=== PATIENT | female | born 1985 | race Asian ===

== ENCOUNTER 2017-06-29 16:45 | Outpatient (CLI) | payer OTHER ==
[~2017-06-29] VITALS: Ht 162.6 cm; Wt 92.2 kg
[2017-06-29 16:49] VITALS: BP 118/63
[2017-06-29 17:07] LABS: MICROSCOPIC NOT IND
[2017-06-29 17:08] LABS: BASOPHILS # (AUTO) 0.04 x10^3/uL (0-0.1); BASOPHILS % (AUTO) 0 % (0-1); EOSINOPHILS % (AUTO) 0 % (1-7); LYMPHOCYTES # (AUTO) 2.33 x10^3/uL (1-3.4); LYMPHOCYTES % (AUTO) 18 % (22-44); MD NO; MEAN CORPUSCULAR HEMOGLOBIN 30.7 pg (27.0-34.8); MEAN CORPUSCULAR HGB CONC 33.2 g/dL (32.4-35.8); MEAN CORPUSCULAR VOLUME 92.5 fL (80-100); MEAN PLATELET VOLUME 7.1 fL (7.4-10.4); MONOCYTES # (AUTO) 0.91 x10^3/uL (0.2-0.8); MONOCYTES % (AUTO) 7 % (2-9); NEUTROPHILS # (AUTO) 9.67 x10^3/uL (1.8-6.8); NEUTROPHILS % (AUTO) 75 % (42-75); PLATELET COUNT 395 x10^3/uL (130-400); RED BLOOD COUNT 3.89 x10^6/uL (3.82-5.3); RED CELL DISTRIBUTION WIDTH 13.4 % (9.6-15.2)
[2017-06-29 17:20] LABS: ALANINE AMINOTRANSFERASE 17 U/L (12-78); ALBUMIN 2.5 g/dL (3.4-5.0); ANION GAP 10 mmol/L (5-15); CALCIUM 8.2 mg/dL (8.5-10.1); CHLORIDE 109 mmol/L (98-107); CREATININE 0.53 mg/dL (0.55-1.02)
[2017-06-29 17:21] LABS: PROTEIN/CREATININE RATIO,URINE < 287 (0-200); TOTAL PROTEIN,URINE RANDOM < 5 mg/dL (0-12)
[2017-06-29 17:22] LABS: ALKALINE PHOSPHATASE 113 U/L (45-117); BILIRUBIN,TOTAL 0.2 mg/dL (0.2-1.0); TOTAL PROTEIN 6.6 g/dL (6.4-8.2)
== END 2017-06-29 18:19 | disposition home or self-care (01) ==
LOC: LDOP 16:45
PROVIDERS: ATTEND Obstetrics & Gynecology
DX: O26.893 Other specified pregnancy related conditions, third trimester (principal); R03.0 Elevated blood-pressure reading, without diagnosis of hypertension; Z3A.33 33 weeks gestation of pregnancy
CPT/HCPCS: 36415; 59025; 80053; 81003; 81050; 82570; 83615; 84156; 84550; 85025; 99201; G0463

== ENCOUNTER 2017-08-11 06:07 | Inpatient (IN) | payer OTHER ==
[~2017-08-11] VITALS: Ht 162.6 cm; Wt 92.7 kg
[2017-08-11] MEDS ORDERED: NEWBORN KIT ONE (06:46)
[2017-08-11] MEDS ORDERED: D5%-LACTATED RINGERS 1,000 ML IV SCH (07:11)
[2017-08-11] MEDS ORDERED: LACTATED RINGERS 1,000 ML IV SCH (07:11)
[2017-08-11] MEDS ORDERED: OXYTOCIN 30U/ 0.9% NaCL 500ML 500 ML IV ONE (07:11)
[2017-08-11] MEDS ORDERED: OXYTOCIN 30U/ 0.9% NaCL 500ML 500 ML IV PRN (07:11)
[2017-08-11] MEDS ORDERED: MISOPROSTOL 25 MCG TABLET VG PRN (07:30)
[2017-08-11] MEDS ORDERED: FENTANYL PF 100 MCG/2ML IV PRN (07:30)
[2017-08-11] MEDS ORDERED: ONDANSETRON 2MG/ML, 2ML IVPush PRN (07:30)
[2017-08-11] MEDS ORDERED: MISOPROSTOL 25 MCG TABLET ONE (07:58)
[2017-08-11 08:03] LABS: BASOPHILS # (AUTO) 0.12 x10^3/uL (0-0.1); BASOPHILS % (AUTO) 1 % (0-1); EOSINOPHILS % (AUTO) 1 % (1-7); LYMPHOCYTES # (AUTO) 2.11 x10^3/uL (1-3.4); LYMPHOCYTES % (AUTO) 19 % (22-44); MD NO; MEAN CORPUSCULAR HEMOGLOBIN 30.8 pg (27.0-34.8); MEAN CORPUSCULAR HGB CONC 33.7 g/dL (32.4-35.8); MEAN CORPUSCULAR VOLUME 91.4 fL (80-100); MEAN PLATELET VOLUME 7.4 fL (7.4-10.4); MONOCYTES # (AUTO) 0.67 x10^3/uL (0.2-0.8); MONOCYTES % (AUTO) 6 % (2-9); NEUTROPHILS # (AUTO) 8.05 x10^3/uL (1.8-6.8); NEUTROPHILS % (AUTO) 73 % (42-75); PLATELET COUNT 359 x10^3/uL (130-400); RED BLOOD COUNT 3.78 x10^6/uL (3.82-5.3); RED CELL DISTRIBUTION WIDTH 15.1 % (9.6-15.2)
[2017-08-11] MEDS ORDERED: ACETAMINOPHEN 325 MG TABLET ONE (09:55)
[2017-08-11] MEDS: ACETAMINOPHEN 325 MG TABLET PO PRN (09:56)
[2017-08-11] MEDS ORDERED: FENTANYL PF 100 MCG/2ML ONE ×2 (18:14→22:13)
[2017-08-11] MEDS: FENTANYL PF 100 MCG/2ML IVPush PRN ×2 (18:17→22:18)
[2017-08-12] MEDS ORDERED: FENTANYL PF 100 MCG/2ML ONE (03:14)
[2017-08-12] MEDS: FENTANYL PF 100 MCG/2ML IVPush PRN (03:17)
[2017-08-12] MEDS ORDERED: OXYTOCIN 30U/ 0.9% NaCL 500ML 500 ML ONE ×2 (05:37→22:03)
[2017-08-12] MEDS ORDERED: METOCLOPRAMIDE 5 MG/ML, 2ML ONE (07:03)
[2017-08-12] MEDS ORDERED: TERBUTALINE 1 MG/ML, 1ML ONE (07:03)
[2017-08-12] MEDS ORDERED: SODIUM CITRATE/CITRIC ACID 30 ML UDC ONE (07:03)
[2017-08-12] MEDS ORDERED: FENTANYL/BUPIV./NS/PF 250 ML EPIDCONT ONE (07:20)
[2017-08-12] MEDS ORDERED: LIDOCAINE-MPF 2% ,5ML ONE (07:20)
[2017-08-12] MEDS ORDERED: BUPIVACAINE 0.25% ONE (07:25)
[2017-08-12] MEDS ORDERED: LIDOCAINE/PF 1.5%-EPI 1:200K, 30ML ONE (07:25)
[2017-08-12] MEDS ORDERED: ACETAMINOPHEN 325 MG TABLET ONE ×2 (09:03→17:49)
[2017-08-12] MEDS: ACETAMINOPHEN 325 MG TABLET PO PRN ×2 (09:05→17:50)
[2017-08-12] MEDS ORDERED: LACTATED RINGERS 1,000 ML IV SCH (09:36)
[2017-08-12] MEDS ORDERED: FENTANYL/BUPIV./NS/PF 250 ML EPIDCONT SCH (09:36)
[2017-08-12] MEDS ORDERED: NALOXONE 0.4 MG/ML, 1ML IVPush PRN (10:00)
[2017-08-12] MEDS ORDERED: LACTATED RINGERS 1,000 ML IVBOLUS PRN (10:00)
[2017-08-12] MEDS ORDERED: EPHEDRINE 50 MG/ML, 1ML IVPush PRN (10:00)
[2017-08-12] MEDS ORDERED: TERBUTALINE 1 MG/ML, 1ML IVPush PRN (14:30)
[2017-08-12] MEDS ORDERED: ACETAMINOPHEN 325 MG TABLET PO PRN ×2 (19:00)
[2017-08-12] MEDS ORDERED: ONDANSETRON 2MG/ML, 2ML IV PRN (19:00)
[2017-08-12] MEDS ORDERED: MEASLES,MUMPS&RUBELLA VACC/PF 0.5 ML SQ-VACC PRN (19:00)
[2017-08-12] MEDS ORDERED: RHOGAM FROM BLOOD BANK 1 NOTE EA IM/IV ONE (19:00)
[2017-08-12] MEDS ORDERED: DOCUSATE 100 MG CAPSULE PO PRN (19:00)
[2017-08-12] MEDS ORDERED: OXYcodone/APAP 5/325MG TABLET PO PRN (19:00)
[2017-08-12] MEDS ORDERED: CALCIUM CARBONATE 500 MG TAB.CHEW PO PRN (19:00)
[2017-08-12] MEDS ORDERED: DIPH,PERTUSS(ACELL),TET VAC/PF NC IM-VACC PRN (19:00)
[2017-08-12] MEDS ORDERED: MISOPROSTOL 200 MCG TABLET PR PRN (19:00)
[2017-08-12] MEDS ORDERED: MAGNESIUM HYDROXIDE 8%, 30ML UDC PO PRN (19:00)
[2017-08-12] MEDS ORDERED: IBUPROFEN 600 MG TABLET ONE (21:19)
[2017-08-12] MEDS: IBUPROFEN 600 MG TABLET PO PRN (21:23)
[2017-08-12] MEDS: OXYTOCIN 30U/ 0.9% NaCL 500ML 500 ML IV SCH (22:07)
[2017-08-12 23:05] VITALS: BP 112/71
[2017-08-13] MEDS: OXYcodone/APAP 5/325MG TABLET PO PRN ×3 (02:09→14:55)
[2017-08-13 04:20] VITALS: BP 119/74
[2017-08-13] MEDS: OXYTOCIN 30U/ 0.9% NaCL 500ML 500 ML IV SCH ×2 (04:39→14:39)
[2017-08-13] MEDS: IBUPROFEN 600 MG TABLET PO PRN ×2 (04:48→13:06)
[2017-08-13 05:42] LABS: MEAN CORPUSCULAR HEMOGLOBIN 30.8 pg (27.0-34.8); MEAN CORPUSCULAR HGB CONC 33.5 g/dL (32.4-35.8); MEAN PLATELET VOLUME 7.7 fL (7.4-10.4); PLATELET COUNT 320 x10^3/uL (130-400); RED BLOOD COUNT 3.81 x10^6/uL (3.82-5.3); RED CELL DISTRIBUTION WIDTH 15.7 % (9.6-15.2)
[2017-08-13 06:04] LABS: BASOPHILS # (AUTO) 0.06 x10^3/uL (0-0.1); BASOPHILS % (AUTO) 0 % (0-1); EOSINOPHILS # (AUTO) 0.06 x10^3/uL (0-0.4); EOSINOPHILS % (AUTO) 0 % (1-7); LYMPHOCYTES # (AUTO) 2.12 x10^3/uL (1-3.4); LYMPHOCYTES % (AUTO) 12 % (22-44); MD SCAN; MONOCYTES % (AUTO) 7 % (2-9); NEUTROPHILS # (AUTO) 14.82 x10^3/uL (1.8-6.8); NEUTROPHILS % (AUTO) 81 % (42-75)
[2017-08-13 07:05] VITALS: BP 117/79
[2017-08-13] MEDS ORDERED: PRENATAL VIT/IRON/FA 1 EACH TABLET PO SCH (09:00)
[2017-08-13 11:30] VITALS: BP 122/77
[2017-08-13] MEDS ORDERED: IBUP-1222 PO (12:26)
[2017-08-13] MEDS ORDERED: DOCU-131 PO (12:28)
[2017-08-13] MEDS ORDERED: OXYC-302 PO (12:30)
[2017-08-13 16:20] VITALS: BP 124/76
== END 2017-08-13 18:50 | disposition home or self-care (01) | DRG 775 ==
LOC: LDIP 06:07 → 2NW 08-12 23:05
PROVIDERS: ADMIT Obstetrics & Gynecology; ATTEND Obstetrics & Gynecology
PROC: 10E0XZZ Delivery of Products of Conception, External Approach (ICD-10-PCS; principal; 2017-08-12)
PROC: 0KQM0ZZ Repair Perineum Muscle, Open Approach (ICD-10-PCS; 2017-08-12)
PROC: 10907ZC Drainage of Amniotic Fluid, Therapeutic from Products of Conception, Via Natural or Artificial Opening (ICD-10-PCS; 2017-08-12)
PROC: 10H07YZ Insertion of Other Device into Products of Conception, Via Natural or Artificial Opening (ICD-10-PCS; 2017-08-12)
DX: O76 Abnormality in fetal heart rate and rhythm complicating labor and delivery (principal); O71.89 Other specified obstetric trauma; Z37.0 Single live birth; Z3A.39 39 weeks gestation of pregnancy
CPT/HCPCS: 36415; 82803; 85025; 86850; 86900; J3010; J3490; J2590; J7120

== ENCOUNTER 2019-11-08 17:00 | Inpatient (IN) | payer BC, OTHER ==
[~2019-11-08] VITALS: Ht 162.6 cm; Wt 100.0 kg
[~2019-11-08 17:00] MED LIST: DOCU-131 PO; IBUP-1222 PO; OXYC-302 PO
[2019-11-08] MEDS ORDERED: D5%-LACTATED RINGERS 1,000 ML IV SCH (17:05)
[2019-11-08] MEDS ORDERED: OXYTOCIN 30U/ 0.9% NaCL 500ML 500 ML IV PRN (17:05)
[2019-11-08] MEDS ORDERED: LIDOCAINE 1%, 20ML ONE (17:05)
[2019-11-08] MEDS ORDERED: LACTATED RINGERS 1,000 ML IV SCH ×2 (17:05→17:36)
[2019-11-08] MEDS ORDERED: OXYTOCIN 30U/ 0.9% NaCL 500ML 500 ML ONE (17:05)
[2019-11-08] MEDS ORDERED: OXYTOCIN 30U/ 0.9% NaCL 500ML 500 ML IV ONE (17:05)
[2019-11-08] MEDS ORDERED: NEWBORN KIT ONE (17:05)
[2019-11-08] MEDS ORDERED: MISOPROSTOL 200 MCG TABLET ONE (17:06)
[2019-11-08 17:25] LABS: BASOPHILS # (AUTO) 0.05 x10^3/uL (0-0.1); BASOPHILS % (AUTO) 1 % (0-1); EOSINOPHILS # (AUTO) 0.19 x10^3/uL (0-0.4); EOSINOPHILS % (AUTO) 2 % (1-7); LYMPHOCYTES # (AUTO) 1.97 x10^3/uL (1-3.4); LYMPHOCYTES % (AUTO) 17 % (22-44); MD NO; MEAN CORPUSCULAR HEMOGLOBIN 32.4 pg (27.0-34.8); MEAN CORPUSCULAR HGB CONC 34.1 g/dL (32.4-35.8); MEAN CORPUSCULAR VOLUME 95.3 fL (80-100); MEAN PLATELET VOLUME 7.7 fL (7.4-10.4); MONOCYTES # (AUTO) 0.59 x10^3/uL (0.2-0.8); MONOCYTES % (AUTO) 5 % (2-9); NEUTROPHILS # (AUTO) 8.82 x10^3/uL (1.8-6.8); NEUTROPHILS % (AUTO) 76 % (42-75); PLATELET COUNT 353 x10^3/uL (130-400); RED BLOOD COUNT 4.16 x10^6/uL (3.82-5.3); RED CELL DISTRIBUTION WIDTH 14.8 % (9.6-15.2)
[2019-11-08] MEDS ORDERED: TERBUTALINE 1 MG/ML, 1ML SQ PRN (17:30)
[2019-11-08] MEDS ORDERED: METOCLOPRAMIDE 5 MG/ML, 2ML IVPush PRN (17:30)
[2019-11-08] MEDS ORDERED: ONDANSETRON 2MG/ML, 2ML IVPush PRN (17:30)
[2019-11-08] MEDS ORDERED: TERBUTALINE 1 MG/ML, 1ML IVPush PRN (17:30)
[2019-11-08] MEDS ORDERED: SODIUM CITRATE/CITRIC ACID 30 ML UDC PO PRN (17:30)
[2019-11-08] MEDS ORDERED: FENTANYL PF 100 MCG/2ML IV PRN (17:30)
[2019-11-08] MEDS ORDERED: FENTANYL PF 100 MCG/2ML IVPush PRN (17:30)
[2019-11-08] MEDS ORDERED: CALCIUM CARBONATE 500 MG TAB.CHEW PO PRN (17:30)
[2019-11-08] MEDS ORDERED: FENTANYL/BUPIV./NS/PF 250 ML EPIDCONT SCH (17:36)
[2019-11-08] MEDS ORDERED: LACTATED RINGERS 1,000 ML IVBOLUS PRN (18:00)
[2019-11-08] MEDS ORDERED: EPHEDRINE 50 MG/ML, 1ML IVPush PRN (18:00)
[2019-11-08 19:46] VITALS: BP 136/89
[2019-11-08] MEDS ORDERED: FENTANYL PF 100 MCG/2ML ONE ×2 (21:04→22:28)
[2019-11-08] MEDS ORDERED: BUPIVACAINE 0.25% ONE (22:28)
[2019-11-09] MEDS ORDERED: ACETAMINOPHEN 325 MG TABLET ONE (04:59)
[2019-11-09] MEDS: ACETAMINOPHEN 325 MG TABLET PO PRN ×2 (05:04→11:45)
[2019-11-09] MEDS ORDERED: DOCUSATE 100 MG CAPSULE PO PRN (06:00)
[2019-11-09] MEDS ORDERED: MISOPROSTOL 200 MCG TABLET PR PRN (06:00)
[2019-11-09] MEDS ORDERED: ACETAMINOPHEN 325 MG TABLET PO PRN ×2 (06:00)
[2019-11-09] MEDS ORDERED: OXYTOCIN 30U/ 0.9% NaCL 500ML 500 ML IV SCH ×2 (06:00)
[2019-11-09] MEDS ORDERED: CALCIUM CARBONATE 500 MG TAB.CHEW PO PRN (06:00)
[2019-11-09] MEDS ORDERED: SIMETHICONE 80 MG CHEW TAB PO PRN (06:00)
[2019-11-09] MEDS ORDERED: BISACODYL 10 MG SUPP PR PRN (06:00)
[2019-11-09] MEDS ORDERED: OXYcodone/APAP 5/325MG TABLET ONE (07:05)
[2019-11-09] MEDS ORDERED: OXYTOCIN 30U/ 0.9% NaCL 500ML 500 ML ONE (07:05)
[2019-11-09] MEDS ORDERED: IBUPROFEN 600 MG TABLET ONE (07:05)
[2019-11-09] MEDS: IBUPROFEN 600 MG TABLET PO PRN ×2 (07:06→17:47)
[2019-11-09] MEDS ORDERED: HYDROcodone/APAP 5/325 TABLET ONE (07:08)
[2019-11-09] MEDS: HYDROcodone/APAP 5/325 TABLET PO PRN ×3 (07:09→22:05)
[2019-11-09 07:40] VITALS: BP 114/75
[2019-11-09 11:30] VITALS: BP 119/78
[2019-11-09] MEDS: PRENATAL VIT/IRON/FA 1 EACH TABLET PO SCH (11:44)
[2019-11-09 13:54] LABS: BASOPHILS # (AUTO) 0.06 x10^3/uL (0-0.1); BASOPHILS % (AUTO) 0 % (0-1); EOSINOPHILS # (AUTO) 0.14 x10^3/uL (0-0.4); EOSINOPHILS % (AUTO) 1 % (1-7); LYMPHOCYTES # (AUTO) 1.65 x10^3/uL (1-3.4); LYMPHOCYTES % (AUTO) 11 % (22-44); MD NO; MEAN CORPUSCULAR HEMOGLOBIN 31.9 pg (27.0-34.8); MEAN CORPUSCULAR HGB CONC 33.1 g/dL (32.4-35.8); MEAN CORPUSCULAR VOLUME 96.3 fL (80-100); MEAN PLATELET VOLUME 7.7 fL (7.4-10.4); MONOCYTES # (AUTO) 0.77 x10^3/uL (0.2-0.8); MONOCYTES % (AUTO) 5 % (2-9); NEUTROPHILS % (AUTO) 82 % (42-75); PLATELET COUNT 288 x10^3/uL (130-400); RED BLOOD COUNT 3.76 x10^6/uL (3.82-5.3); RED CELL DISTRIBUTION WIDTH 15.2 % (9.6-15.2)
[2019-11-09 16:00] VITALS: BP 101/65
[2019-11-09 20:00] VITALS: BP 115/79
[2019-11-10] VITALS: BP 110/78
[2019-11-10] MEDS: IBUPROFEN 600 MG TABLET PO PRN (03:24)
[2019-11-10 03:42] VITALS: BP 135/89
[2019-11-10] MEDS: PRENATAL VIT/IRON/FA 1 EACH TABLET PO SCH (08:10)
[2019-11-10] MEDS: HYDROcodone/APAP 5/325 TABLET PO PRN (08:10)
[2019-11-10 08:25] VITALS: BP 117/75
[2019-11-10] MEDS ORDERED: IBUP-1222 PO (10:14)
[2019-11-10] MEDS ORDERED: OXYC-302 PO (10:14)
== END 2019-11-10 11:35 | disposition home or self-care (01) | DRG 806 ==
LOC: LDIP 17:00 → 2NW 11-09 07:32
PROVIDERS: ADMIT Obstetrics & Gynecology; ATTEND Obstetrics & Gynecology
PROC: 10E0XZZ Delivery of Products of Conception, External Approach (ICD-10-PCS; principal; 2019-11-08)
PROC: 0HQ9XZZ Repair Perineum Skin, External Approach (ICD-10-PCS; 2019-11-08)
PROC: 3E033VJ Introduction of Other Hormone into Peripheral Vein, Percutaneous Approach (ICD-10-PCS; 2019-11-08)
PROC: 3E0R3BZ Introduction of Anesthetic Agent into Spinal Canal, Percutaneous Approach (ICD-10-PCS; 2019-11-08)
PROC: 00HU33Z Insertion of Infusion Device into Spinal Canal, Percutaneous Approach (ICD-10-PCS; 2019-11-08)
DX: O40.3XX0 Polyhydramnios, third trimester, not applicable or unspecified (principal); O99.354 Diseases of the nervous system complicating childbirth; Z37.0 Single live birth; O66.0 Obstructed labor due to shoulder dystocia; Z3A.39 39 weeks gestation of pregnancy; O70.0 First degree perineal laceration during delivery; O69.1XX0 Labor and delivery complicated by cord around neck, with compression, not applicable or unspecified; O76 Abnormality in fetal heart rate and rhythm complicating labor and delivery; O99.52 Diseases of the respiratory system complicating childbirth; J45.909 Unspecified asthma, uncomplicated; G43.909 Migraine, unspecified, not intractable, without status migrainosus; Z80.0 Family history of malignant neoplasm of digestive organs; Z80.3 Family history of malignant neoplasm of breast; Z82.3 Family history of stroke; Z82.49 Family history of ischemic heart disease and other diseases of the circulatory system; Z83.3 Family history of diabetes mellitus
CPT/HCPCS: 36415; 87806; J7121; 82803; 85025; 86592; 86850; 86900; G0378; J3010; G0475; J2590; J7120

== ENCOUNTER → 2020-01-13 | Outpatient (CLI) | payer BC ==
[~2020-01-13] MED LIST changes: +ACET325T14 PO
[2020-01-13 15:49] LABS: BASOPHILS # (AUTO) 0.09 x10^3/uL (0-0.1); BASOPHILS % (AUTO) 1 % (0-1); EOSINOPHILS # (AUTO) 0.22 x10^3/uL (0-0.4); EOSINOPHILS % (AUTO) 3 % (1-7); LYMPHOCYTES # (AUTO) 2.42 x10^3/uL (1-3.4); LYMPHOCYTES % (AUTO) 30 % (22-44); MD NO; MEAN CORPUSCULAR HEMOGLOBIN 31.6 pg (27.0-34.8); MEAN CORPUSCULAR HGB CONC 33.3 g/dL (32.4-35.8); MEAN CORPUSCULAR VOLUME 94.7 fL (80-100); MEAN PLATELET VOLUME 7.7 fL (7.4-10.4); MONOCYTES # (AUTO) 0.44 x10^3/uL (0.2-0.8); MONOCYTES % (AUTO) 6 % (2-9); NEUTROPHILS % (AUTO) 61 % (42-75); PLATELET COUNT 332 x10^3/uL (130-400); RED BLOOD COUNT 4.78 x10^6/uL (3.82-5.3); RED CELL DISTRIBUTION WIDTH 14.2 % (9.6-15.2)
[2020-01-13 16:06] LABS: ALANINE AMINOTRANSFERASE 117 U/L (12-78); ALBUMIN 3.6 g/dL (3.4-5.0); ANION GAP 6 mmol/L (5-15); CALCIUM 8.6 mg/dL (8.5-10.1); CHLORIDE 112 mmol/L (98-107); CREATININE 0.86 mg/dL (0.55-1.02)
[2020-01-13 16:10] LABS: ALKALINE PHOSPHATASE 91 U/L (45-117); BILIRUBIN,TOTAL 0.3 mg/dL (0.2-1.0); TOTAL PROTEIN 7.5 g/dL (6.4-8.2)
[2020-01-13 16:11] LABS: MICROSCOPIC NOT IND
== END | disposition home or self-care (01) ==
LOC: STAR 15:10
PROVIDERS: ATTEND Obstetrics & Gynecology
DX: Z01.818 Encounter for other preprocedural examination (principal); Z11.59 Encounter for screening for other viral diseases
CPT/HCPCS: 36415; 80053; 81003; 84702; 85025; 87635

== ENCOUNTER 2020-01-18 05:15 | Day surgery (SDC) | payer BC, OTHER ==
[~2020-01-18] VITALS: Ht 162.6 cm; Wt 87.0 kg
[2020-01-18] MEDS ORDERED: SILVER NITRATE STICK TP ONE ×2 (05:54→08:34)
[2020-01-18] MEDS ORDERED: BUPIVACAINE/PF-EPI 0.25% 1:200K ONE (05:55)
[2020-01-18] MEDS ORDERED: LACTATED RINGERS 1,000 ML IV SCH (06:06)
[2020-01-18 06:07] VITALS: BP 116/88
[2020-01-18] MEDS ORDERED: CHLORHEXIDINE 15 ML UDC MM ONE (06:30)
[2020-01-18 06:45] LABS: HCG UR SG 1.026 (1.003-1.030)
[2020-01-18] MEDS ORDERED: PROPOFOL 50 ML ONE ×2 (07:00→08:06)
[2020-01-18] MEDS ORDERED: FENTANYL PF 250 MCG/5ML ONE (07:00)
[2020-01-18] MEDS ORDERED: MIDAZOLAM 1 MG/ML, 2ML ONE (07:00)
[2020-01-18] MEDS ORDERED: CEFAZOLIN PMX 1GM/50ML ONE (07:12)
[2020-01-18] MEDS ORDERED: ROCURONIUM 10MG/ML,5ML ONE ×2 (07:49)
[2020-01-18] MEDS ORDERED: PROPOFOL 10 MG/ML, 20ML ONE (07:49)
[2020-01-18] MEDS ORDERED: DEXAMETHASONE 4 MG/ML, 1ML ONE (07:49)
[2020-01-18] MEDS ORDERED: KETOROLAC 30 MG/1 ML ONE (07:49)
[2020-01-18] MEDS ORDERED: ONDANSETRON 2MG/ML, 2ML ONE (07:49)
[2020-01-18] MEDS ORDERED: SUCCINYLCHOLINE 20 MG/ML, 10ML ONE (07:49)
[2020-01-18 07:56] LABS: ALANINE AMINOTRANSFERASE 97 U/L (12-78); ALBUMIN 3.2 g/dL (3.4-5.0); ANION GAP 5 mmol/L (5-15); CALCIUM 7.8 mg/dL (8.5-10.1); CHLORIDE 113 mmol/L (98-107); CREATININE 0.75 mg/dL (0.55-1.02)
[2020-01-18 07:58] LABS: ALKALINE PHOSPHATASE 73 U/L (45-117); BILIRUBIN,TOTAL 0.4 mg/dL (0.2-1.0); TOTAL PROTEIN 6.1 g/dL (6.4-8.2)
[2020-01-18] MEDS ORDERED: ONDANSETRON 2MG/ML, 2ML IVPush PRN (08:00)
[2020-01-18] MEDS ORDERED: DIAZEPAM 5 MG/ML, 2ML IVPush PRN (08:00)
[2020-01-18] MEDS ORDERED: HYDROmorphone 1 MG/ML, 1ML INJ IVPush PRN (08:00)
[2020-01-18] MEDS ORDERED: EPHEDRINE 50 MG/ML, 1ML IVPush PRN (08:00)
[2020-01-18] MEDS ORDERED: DIPHENHYDRAMINE 50 MG/ML, 1ML IVPush PRN (08:00)
[2020-01-18] MEDS ORDERED: PROMETHAZINE 25 MG/ML, 1ML IVPush PRN (08:00)
[2020-01-18] MEDS ORDERED: EPHEDRINE 50 MG/ML, 1ML IM PRN (08:00)
[2020-01-18] MEDS ORDERED: OXYcodone 5 MG/5 ML ORAL.SOL UDC PO PRN (08:00)
[2020-01-18] MEDS ORDERED: LABETALOL 5MG/ML, 20ML IV PRN (08:00)
[2020-01-18] MEDS ORDERED: FENTANYL PF 100 MCG/2ML IV PRN (08:00)
[2020-01-18] MEDS ORDERED: MEPERIDINE/PF 25MG/0.5ML IVPush PRN (08:00)
[2020-01-18] MEDS ORDERED: MEPERIDINE/PF 25MG/ML,1ML ONE (09:14)
== END 2020-01-18 11:05 | disposition home or self-care (01) ==
LOC: OUT 05:15
PROVIDERS: ATTEND Obstetrics & Gynecology
DX: Z30.2 Encounter for sterilization (principal); I10 Essential (primary) hypertension; G43.909 Migraine, unspecified, not intractable, without status migrainosus; J45.909 Unspecified asthma, uncomplicated; Z79.899 Other long term (current) drug therapy; Z88.0 Allergy status to penicillin; Z98.890 Other specified postprocedural states; Z83.3 Family history of diabetes mellitus; Z82.49 Family history of ischemic heart disease and other diseases of the circulatory system; Z82.61 Family history of arthritis; Z82.3 Family history of stroke; Z80.3 Family history of malignant neoplasm of breast; Z80.0 Family history of malignant neoplasm of digestive organs
CPT/HCPCS: 36415; 58670; 80053; 81025; 82570; 84156; 86850; 86900; 88302; J0330; J0690; J1100; J1885; J2175; J2250; J2405; J2704; J3010; J7120